=== PATIENT | female | born 1950 | race Caucasian/White ===

== ENCOUNTER 2016-10-14 12:01 | Emergency (ER) | payer MEDICARE ==
[~2016-10-14] VITALS: Ht 162.6 cm; Wt 90.7 kg
[~2016-10-14 12:01] MED LIST: ALBUTEROL-1 PUFF/14. IN; ALEVE220 MG PO; AMITRIPTYLINE100 MG PO; AMLO5TAB PO; COMBIVENT INH14.7 GM IN; COMBIVENT RESPI1 SPR IH; FLONASE 50 MCG16 GM; FUROSEMIDE 20MG20 MG PO; GABAPENTIN300 MG PO; HYDROCODONE-APA1 TA1 PO; INSULIN GL100 UNITS/ SC; JANUMET 1000 MG1 TAB PO; KAPIDEX60 MG PO; LEVAQUIN500 MG PO; LISINOPRIL/HYDR1 TAB PO; LOSARTAN POTASS25 MG PO; METFORMIN500 MG PO; MICARDIS HCT 251 TAB PO; NYSTATIN CREAM15 GM EX; OMNICEF 300 MG300 MG PO; PANTOPRAZOLE SO40 MG PO; PERSANTINE75 MG PO; PREDNISONE 20MG20 MG PO; PROAIR HFA0.09 MG/AC IH; Pentoxifylline400 MG PO; SIMVASTATIN40 MG PO; SYMBICORT1 AER IH; SYNTHROID0.088 MG PO; TEKTURNA150 MG PO; TESSALON PERLE100 M1 PO; ULTRAM50 MG PO; VENTOLIN H0.09 MG/AC IH; VITAMIN C500 M1 PO; VITAMIN D1000 IU PO; VYTORIN 10 MG-41 TAB PO; XANAX1 MG PO; ZITHROMAX Z PA250 MG PO; [UNRECOGNIZED DRUG - OTHER] PO
[2016-10-14 12:48] LABS: URINE BILIRUBIN - DIPSTICK NEGATIVE (NEG)
[2016-10-14 12:50] LABS: URINE BLOOD 1+ (NEG)
--- NOTE | 2016-10-14 12:59 | Urgent Treatment Center Report ---
History of Present Issue Date/Time Seen by Provider 10/14/16 1255 Visit Reason Pt arrived:Walked Presenting Problem:FREQ URINATION WITH BURNING X3 DAYS Location if Accident: Onset of symptoms date/time:10/11/1604/21/700 or onset unknown for: Have you (or family members/close friends) recently traveled outside the [place]? N If Yes, where/when: Have you had exposure to infectious disease within the past month? TB? Other? Specify: Source patient, RN notes reviewed, family Exam Limitations no limitations Comment Pt has had dysuria, frequency X 2-3 days. No fever. Has been fighting URI type symptoms for several months but has not been an antibiotics X 2-3 weeks. Has some nausea. Has a history of DM. ALLERGIES Coded Allergies: Sulfa (Sulfonamide Antibiotics) (Severe, S-DIFF. BREATHING, SWELLING 08/02/15) cephalexin (Severe, S-DIFF. BREATHING, SWELLING 08/02/15) acetaminophen (From PERCOCET) (Intermediate, I-RASH, HEADACHE 08/02/15) albuterol (Intermediate, I-RASH; HEADACHE 08/02/15) amoxicillin (From AUGMENTIN) (Intermediate, I-RASH, HEADACHE 08/02/15) atorvastatin (From LIPITOR) (Intermediate, I-ITCHING; HAIR FALLS OUT 08/02/15) clavulanic acid (From AUGMENTIN) (Intermediate, I-RASH, HEADACHE 08/02/15) codeine (From TYLENOL-CODEINE) (Intermediate, I-RASH, HEADACHE 08/02/15) hydrocodone (From LORTAB) (Intermediate, I-ITCHING (IN LARGE DOSES PER PT.) ) morphine (Intermediate, I-RASH, HEADACHE, ASTHMA ATTACKS 08/02/15) oxycodone (From PERCOCET) (Intermediate, I-RASH, HEADACHE 08/02/15) tramadol (Intermediate, I-RASH, HEADACHE 08/02/15) ipratropium (Mild, 02/18/16) levalbuterol (Mild, 02/18/16) Home Medications Active Scripts AMITRIPTYLINE HCL (Amitriptyline HCl) 50 MG PO QHS #30 TAB Prov: 03/08/15 Levofloxacin (Levaquin 500MG) 500 MG PO DAILY #10 TAB Prov: 02/20/16 ALBUTEROL-IPRATROPIUM (Combivent Inhaler) 1 PUFFS IN QIDP PRN SHORTNESS OF BREATH #1 INH Ref 3 Prov: 02/20/16 Prednisone (Prednisone 20MG) 20 MG PO BID #10 TAB Prov: 02/20/16 Reported Medications Gabapentin (Gabapentin 300MG) 300 MG PO TID PRN PAIN Furosemide (Furosemide) 20 MG PO DAILY Simvastatin (Simvastatin 40MG Tab) 40 MG PO QHS INSULIN GLARGINE (Lantus 3ML Solostar Pen) 60 UNITS SC QHS HYDROCODONE 5MG/APAP 325MG (Hydrocodon-Acetaminophen 5-325) 1 TAB PO TIDP PRN PAIN Ascorbic Acid (Vitamin C) 500 MG PO DAILY CHOLECALCIFEROL (VITAMIN D3) (Vitamin D3) 1,000 IUNITS PO DAILY Losartan Potassium (Losartan 25MG) 25 MG PO DAILY #30 TAB Levothyroxine Sodium (Synthroid 0.088MG) 88 MCG PO DAILY Alprazolam (Xanax) 1 MG PO TIDP Metformin HCL (Metformin) 500 MG PO BID Amlodipine Besylate (Amlodipine) 10 MG PO DAILY BUDESONIDE/FORMOTEROL FUMARATE (Symbicort 80-4.5 Mcg Inhaler) 2 PUFF IH BID History Medical History General CAD? No Angina: Yes [place]: No Hypertension? Yes Hyperlipidemia? Yes CHF? No DVT? No PE? No COPD? No Asthma? Yes Anemia? No GERD? No Gastric ulcers? No GI Bleed? No Hernia? Yes Thyroid Problems? Yes Hypothyroidism? Yes CVA? No Seizures? No Diabetes? Yes Insulin Dependent: Yes Insulin Pump: No Home FSBS? Yes Renal Insuffiency? No UTI? Yes Stones? No BPH? No GB Disease: Yes Nephritic Syndrome? No Asplenia? No Hepatitis? No Sickle Cell Disease? No Arthritis? No Migraines? Yes Cataracts? No Glaucoma? No MRSA? Yes HIV? No TB? No Anxiety? Yes Depression? Yes Cancer? No More? 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 Genitourinary dysuria, frequency, pain. denies: discharge. Physical Exam Vital Signs Vital Signs Date Time Temp Pulse Resp B/P Pulse O2 O2 Flow FiO2 Ox Delivery Rate 10/14 1240 97.8 91 20 152/78 94 10/14 1209 97.8 91 20 152/78 94 General Appearance normal appearance, WD/WN, no apparent distress Eye Exam - bilateral eye PERRL Ear, Nose, Throat normal pharynx Respiratory Status Yes: trachea midline, chest symmetrical. No: respiratory distress. Lung Sounds bilateral: normal breath sounds. Cardiovascular regular rate/rhythm, no murmur Gastrointestinal normal bowel sounds, soft Neurologic alert, oriented x 3 Medical Decision Making LABS/Meds/Orders Pt receiving controlled substance in ED? No Results/Orders Laboratory Tests 10/14/16 1242: Urine Color Pending, Urine Appearance CLEAR, Urine pH 6.0, Ur Specific [place] < 1.005 L, Urine Protein NEGATIVE, Urine Ketones NEGATIVE, Urine Blood 1+ H, Urine Nitrate NEGATIVE, Urine Bilirubin NEGATIVE, Urine Urobilinogen 0.2, Ur Leukocyte Esterase 3+ H, Urine Glucose NEGATIVE Orders Procedure Date/time Status CULTURE, URINE 10/14 1301 Active [facility] URINE DIPSTICK 10/14 1242 Active Departure Departure Disposition [place] Home or Self Care(routine) Clinical Impression Primary Impression: UTI (urinary tract infection) Qualifiers: Urinary tract infection type: acute cystitis Hematuria presence: with hematuria Qualified Code: N30.01 - Acute cystitis with hematuria Condition STABLE Referrals Armida Black APRN (Family): 3 Days-Call Office Patient Instructions DI for Urinary Tract Infection (UTI) Additional Instructions Urine culture results should be available in 48-72 hours for [place] to review Discharge Counseling Counseled pt/family regarding diagnosis, test results, medications/RX, follow up needs Prescriptions Current Visit Scripts NITROFURANTOIN MONOHYD/M-CRYST (Macrobid 100 MG Capsule) 100 MG PO BID #14 CAP at 1302
[2016-10-14] MEDS ORDERED: MACROBID100 M3 PO (13:01)
[2016-10-14 13:06] VITALS: BP 152/78
== END 2016-10-14 13:06 | disposition home or self-care (01) ==
LOC: ER 12:01 → UTC 12:18
PROVIDERS: Emergency Medicine
DX: N30.01 Acute cystitis with hematuria (principal); E11.9 Type 2 diabetes mellitus without complications; Z79.4 Long term (current) use of insulin; I10 Essential (primary) hypertension

== ENCOUNTER 2017-03-09 13:44 | Observation (INO) | payer MEDICARE ==
[~2017-03-09] VITALS: Ht 162.6 cm; Wt 88.6 kg
[~2017-03-09 13:44] MED LIST changes: +MACROBID100 M3 PO
[2017-03-09 13:47] VITALS: BP 144/67
[2017-03-09 14:04] LABS: LYMPH # 1.3 K/mm3 (0.7-4.5); LYMPH % 15.3 % (10-50.0)
[2017-03-09 14:05] LABS: HEMOGLOBIN 12.1 g/dL (12.2-16.2)
[2017-03-09 14:20] LABS: URINE BILIRUBIN - DIPSTICK NEGATIVE (NEG); URINE BLOOD 1+ (NEG)
--- NOTE | 2017-03-09 14:35 | Emergency Room Report ---
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 C/O FALLING MORE FREQUENTLY Onset of symptoms date/time:/ or onset unknown for:MEDICAL HX UNKNOWN Treatment Prior to Arrival: 20G IN THE LEFT AC AND LABS DRAWN. 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 N Clinical Suspician of Infection? N Mental Status: 1 - Regular (Normal Baseline) Sepsis Risk:Low Sepsis Risk Have you (or family members/close friends) recently traveled outside the [place]? N If Yes, where/when: Have you had exposure to infectious disease within the past month? N TB? Other? Specify: 66 years old white female fell at home after having an episode of diarrhea X 3 TIMES. She landed on her buttocks. She has chronic history of chronic obstructive pulmonary disease she is on home oxygen dependent. No excess sugars had no chest pain no vomiting. Recently diagnosed with a UTI and she's on antibiotic. Source patient, RN notes reviewed, family Exam Limitations no limitations ALLERGIES Coded Allergies: Sulfa (Sulfonamide Antibiotics) (Severe, S-DIFF. BREATHING, SWELLING 08/02/15) cephalexin (Severe, S-DIFF. BREATHING, SWELLING 08/02/15) acetaminophen (From PERCOCET) (Intermediate, I-RASH, HEADACHE 08/02/15) albuterol (Intermediate, I-RASH; HEADACHE 08/02/15) amoxicillin (From AUGMENTIN) (Intermediate, I-RASH, HEADACHE 08/02/15) atorvastatin (From LIPITOR) (Intermediate, I-ITCHING; HAIR FALLS OUT 08/02/15) clavulanic acid (From AUGMENTIN) (Intermediate, I-RASH, HEADACHE 08/02/15) codeine (From TYLENOL-CODEINE) (Intermediate, I-RASH, HEADACHE 08/02/15) hydrocodone (From LORTAB) (Intermediate, I-ITCHING (IN LARGE DOSES PER PT.) ) morphine (Intermediate, I-RASH, HEADACHE, ASTHMA ATTACKS 08/02/15) oxycodone (From PERCOCET) (Intermediate, I-RASH, HEADACHE 08/02/15) tramadol (Intermediate, I-RASH, HEADACHE 08/02/15) ipratropium (Mild, 02/18/16) levalbuterol (Mild, 02/18/16) Home Medications Active Scripts AMITRIPTYLINE HCL (Amitriptyline HCl) 50 MG PO QHS #30 TAB Prov: 03/08/15 Levofloxacin (Levaquin 500MG) 500 MG PO DAILY #10 TAB Prov: 02/20/16 ALBUTEROL-IPRATROPIUM (Combivent Inhaler) 1 PUFFS IN QIDP PRN SHORTNESS OF BREATH #1 INH Ref 3 Prov: 02/20/16 Prednisone (Prednisone 20MG) 20 MG PO BID #10 TAB Prov: 02/20/16 NITROFURANTOIN MONOHYD/M-CRYST (Macrobid 100 MG Capsule) 100 MG PO BID #14 CAP Prov: 10/14/16 Reported Medications Gabapentin (Gabapentin 300MG) 300 MG PO TID PRN PAIN Furosemide (Furosemide) 20 MG PO DAILY Simvastatin (Simvastatin 40MG Tab) 40 MG PO QHS INSULIN GLARGINE (Lantus 3ML Solostar Pen) 60 UNITS SC QHS HYDROCODONE 5MG/APAP 325MG (Hydrocodon-Acetaminophen 5-325) 1 TAB PO TIDP PRN PAIN Ascorbic Acid (Vitamin C) 500 MG PO DAILY CHOLECALCIFEROL (VITAMIN D3) (Vitamin D3) 1,000 IUNITS PO DAILY Losartan Potassium (Losartan 25MG) 25 MG PO DAILY #30 TAB Levothyroxine Sodium (Synthroid 0.088MG) 88 MCG PO DAILY Alprazolam (Xanax) 1 MG PO TIDP Metformin HCL (Metformin) 500 MG PO BID Amlodipine Besylate (Amlodipine) 10 MG PO DAILY BUDESONIDE/FORMOTEROL FUMARATE (Symbicort 80-4.5 Mcg Inhaler) 2 PUFF IH BID History Medical History General CAD? No Angina: Yes [place]: No Hypertension? Yes Hyperlipidemia? Yes CHF? No DVT? No PE? No COPD? No Asthma? Yes Anemia? No GERD? No Gastric ulcers? No GI Bleed? No Hernia? Yes Thyroid Problems? Yes Hypothyroidism? Yes CVA? No Seizures? No Diabetes? Yes Insulin Dependent: Yes Insulin Pump: No Home FSBS? Yes Renal Insuffiency? No End Stage Renal Disease? No UTI? Yes Stones? No BPH? No GB Disease: Yes Nephritic Syndrome? No Asplenia? No Hepatitis? No Sickle Cell Disease? No Arthritis? No Migraines? Yes Cataracts? No Glaucoma? No MRSA? Yes HIV? No TB? No Anxiety? Yes Depression? Yes Cancer? No More? No Immunization Hx DT/Tetanus > 10 Years Ago Flu 10/03/2013 Pneumonia Received In Past Surgical Hx Previous Surgery?Y Tubal Ligation HERNIA REPAIR REMOVED SWEAT GLANDS LT OVARY REMOVED Tonsils GALLBLADDER BLADDER TACK,COLON LIFT, KIDNEY ADHESIONS REMOVED THROAT NODULE REMOVED THROAT POLYP REMOVED X2 COLONOSCOPY ATTEMPTED HERNIA REPAIR 07/17-UNABLE TO LOCATE Family History Family Hx Diabetes Yes CAD Yes Hypertension Yes Hyperlipidemia Yes Cancer Yes TB No Social History Smoking Hx Smoker: Never Smoker Tobacco: No Packs/day N/A Alcohol Alcohol: No Review of Systems All Other Systems Reviewed and Negative Eyes no symptoms reported ENT no symptoms reported. Respiratory no symptoms reported Cardiovascular no symptoms reported Gastrointestinal no symptoms reported, see HPI, diarrhea Genitourinary no symptoms reported. Musculoskeletal see HPI, back pain Skin no symptoms reported Psychiatric/Neurological no symptoms reported Physical Exam Vital Signs Vital Signs Date Time Temp Pulse Resp B/P Pulse O2 O2 Flow FiO2 Ox Delivery Rate 03/09 1611 88 16 152/72 95 2 / 1525 87 18 140/68 97 2 08/ 1432 89 16 150/88 97 2 08/ 1347 98.2 92 16 144/67 95 2 - WBC >12,000 or <4,000 or 10% bands? 2 or more SIRS Criteria Met? B/P:150/88 MAP:92 Creatinine >2.0? UA output<0.5ml/kg/hr for 2 hrs? Platelet count >100,000? Lactate >2.0mmol/1? INR >1.2 or PTT > than 60 sec? Evidence of Organ Dysfunction? Provider documented clinical suspician of infection? N Sepsis Criteria Count: 1 Sepsis Risk: Low Sepsis Risk General Appearance normal appearance, WD/WN Eye Exam - bilateral eye normal exam, bilateral eye PERRL, bilateral eye EOMI Ear, Nose, Throat hearing grossly normal, normal ENT inspection Neck normal inspection, non-tender, supple, full range of motion Respiratory Status Yes: trachea midline, chest symmetrical, non tender chest. No: respiratory distress. Lung Sounds bilateral: normal breath sounds, lungs clear. 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 No Results/Orders Laboratory Tests 03/09/17 1415: Urine Color YELLOW, Urine Appearance SL CLOUDY, Urine pH 6.0, Ur Specific [place] <= 1.005, Urine Protein 1+ H, Urine Ketones NEGATIVE, Urine Blood 1+ H , Urine Nitrate NEGATIVE, Urine Bilirubin NEGATIVE, Urine Urobilinogen 0.2, Ur Leukocyte Esterase 2+ H, Urine RBC 3-5, Urine WBC 20-50, Ur Squamous Epith Cells OCC, Urine Bacteria 2+, Urine Glucose TRACE H 03/09/17 1350: Troponin I < 0.02, B-Natriuretic Peptide 188 H 03/09/17 1350: Sodium 132 L, Potassium 4.1, Chloride 94 L, Carbon Dioxide 31, BUN 27 H, Creatinine 1.5 H, Estimated Creat Clear 52, Estimated GFR (MDRD) 35 L, Glucose 217 H, Calcium 10.5 H, Total Bilirubin 0.3, AST 22, ALT 33, Alkaline Phosphatase 93, Total Protein 8.3 H, Albumin 2.6 L, Globulin 5.7 H, Albumin/ Globulin Ratio 0.5 L, WBC 8.6, RBC 3.99 L, Hgb 12.1 L, Hct 38.1, MCV 95.5, RDW 13.0, Plt Count 226, MPV 7.7, Gran % 76.6, Gran # 6.6, Lymphocytes % 15.3, Monocytes % 6.7, Eosinophils % 0.9, Basophils % 0.5, Lymphocytes # 1.3, Monocytes # 0.6, Eosinophils # 0.1, Basophils # 0.0, PUBS MCHC 31.8, MCH 30.4 Current Medication Orders Sig/Matilde Start time Last Medication Dose Route Stop Time Status Admin Sodium Chloride 10 ML PRN PRN 03/09 1400 AC IV 03/10 1354 Orders Procedure Date/time Status ELECTROCARDIOGRAM REQUEST 03/09 1436 Active TROPONIN I 03/09 1436 Complete DIARRHEA PANEL, PCR 03/09 1436 Active BRAIN NATRIURETIC PEPTIDE 03/09 1436 Complete 12 LEAD EKG-LEATHA (INITIAL) 03/09 1430 Active CULTURE, URINE 03/09 1415 Active IV SALINE LOCK 03/09 1354 Active URINALYSIS/COMPLETE 03/09 135 Complete CBC WITH AUTO DIFF 03/09 135 Complete CHEM 12 PROFILE 03/09 135 Complete Departure Departure Time of Disposition 1639 Disposition Still a Patient Clinical Impression Primary Impression: Weakness Secondary Impressions: Dehydration, Enteritis, Falls Condition STABLE Referrals Leiv Gutierrez MD (Family) Additional Instructions I DISCUSSED WITH DR SNOW WHO WILL ADMIT FOR IVF AND IV ABX. THE PATIENT AND THE FAMILY AGREES. Discharge Counseling Counseled pt/family regarding diagnosis, test results, medications/RX, home care ED Critical Care Critical Care No If Critical Care minutes are documented, the time involved in the performance of seperately reportable procedures was not counted toward critical care time documented. I directly delivered medical care to this critically ill and/or injured patient. Timely evaluation and treatment was necessary to address the significant organ system(s) dysfunction present in this patient. at 1641
[2017-03-09 14:37] LABS: URINE SQUAMOUS CELLS OCC #/hpf (0-5)
--- NOTE | 2017-03-09 16:15 | RADIOLOGY REPORT PS360 ---
ABD ACUTE(MUL VIEWS) HISTORY: DIARRHEA diarrhea. Abdominal pain Patient Age: 66 years: Female Ordering Physician: Mason Hinojosa MD TECHNIQUE: Flat and . Upright abdomen COMPARISON : CT abdomen pelvis from June 2013 utilized. FINDINGS . Moderate Solid stool is seen throughout the right colon . However there is mainly gas with minimal evident stool throughout the gaseous distended transverse colon. Minimal, less evident gas throughout the descending colon and rectum. There may be some small air-fluid levels at the transverse and left colon on the upright film which is likely reflect given history of diarrhea. Diarrhea There is mild to moderate gas at small bowel. No significant small bowel dilatation but we do see some scattered small air-fluid levels in the small bowel. The findings are compatible with enteritis. The stomach is not distended thus no evidence of obstruction at this level. Cholecystectomy clips right upper quadrant. Moderate size bladder. Uterus deviated to right on previous 2012 CT which account for appearance of fullness right pelvis IMPRESSION: 1.. No significant bowel dilatation or obstruction. No free air 2. Findings compatible with Enteritis: Moderate solid stool throughout right colon; with generous gas transverse colon. Scattered modest air-fluid levels throughout the transverse & left colon reflect diarrhea. Mild to moderate gas in nondilated small bowel. Scattered small air-fluid levels here Above findings would be compatible with enteritis Addendum. I would note the patient did have suprapubic fat-containing moderate-sized ventral hernia on that previous 2013 CT. But no associated findings in this region appreciated today on plain film
[2017-03-09 17:39] VITALS: BP 140/65
[2017-03-09 17:41] VITALS: BP 140/65
[2017-03-09 19:42] VITALS: BP 156/73
[2017-03-09 21:30] VITALS: BP 156/73
[2017-03-10 04:03] VITALS: BP 120/58
[2017-03-10 08:11] VITALS: BP 130/57
[2017-03-10 09:15] VITALS: BP 130/57
--- NOTE | 2017-03-10 09:19 | HISTORY AND PHYSICAL REPORT ---
Demographics: Admit date: 03/10/17 Chief complaint: Diarrhea PRIMARY DIAGNOSIS: ENTERITIS Allergies: Coded Allergies: Sulfa (Sulfonamide Antibiotics) (Severe, S-DIFF. BREATHING, SWELLING 08/02/15) cephalexin (Severe, S-DIFF. BREATHING, SWELLING 08/02/15) acetaminophen (From PERCOCET) (Intermediate, I-RASH, HEADACHE 08/02/15) albuterol (Intermediate, I-RASH; HEADACHE 08/02/15) amoxicillin (From AUGMENTIN) (Intermediate, I-RASH, HEADACHE 08/02/15) atorvastatin (From LIPITOR) (Intermediate, I-ITCHING; HAIR FALLS OUT 08/02/15) clavulanic acid (From AUGMENTIN) (Intermediate, I-RASH, HEADACHE 08/02/15) codeine (From TYLENOL-CODEINE) (Intermediate, I-RASH, HEADACHE 08/02/15) hydrocodone (From LORTAB) (Intermediate, I-ITCHING (IN LARGE DOSES PER PT.) ) morphine (Intermediate, I-RASH, HEADACHE, ASTHMA ATTACKS 08/02/15) oxycodone (From PERCOCET) (Intermediate, I-RASH, HEADACHE 08/02/15) tramadol (Intermediate, I-RASH, HEADACHE 08/02/15) ipratropium (Mild, 02/18/16) levalbuterol (Mild, 02/18/16) History of present illness: History of present illness: 66-year-old white female with multiple comorbidities, chronic cystitis/ recurrent urinary tract infections who recently was placed on levofloxacin for a cystitis. Her symptoms of urinary frequency and urgency and dysuria-which are rarely under control-have slightly improved with antibiotic therapy. However, she's now begun to suffer from severe diarrhea and presented to the emergency arm and she was found to have incontinence of stool, evidence of mild dehydration. Admitted to hospital. This morning she is slightly improved with no diarrhea since admission, but some abdominal tenderness and discomfort. She has not eaten any solid food yet this admission. Past medical history: Family HX Diabetes Yes CAD Yes Hypertension Yes Hyperlipidemia Yes Cancer Yes TB No Immunization HX DT/Tetanus > 10 Years Ago Flu 10/03/2013 Pneumonia Received In Past TB Test in last year No General CAD? No Angina: Yes [place]: No Hypertension? Yes Hyperlipidemia? Yes CHF? No DVT? No PE? No COPD? No Asthma? Yes Anemia? No GERD? No Gastric ulcers? No GI Bleed? No Hernia? Yes Thyroid Problems? Yes Hypothyroidism? Yes CVA? No Seizures? No Diabetes? Yes Insulin Dependent: Yes Insulin Pump: No Home FSBS? Yes Renal Insuffiency? No UTI? Yes Stones? No BPH? No GB Disease: Yes Nephritic Syndrome? No Asplenia? No Hepatitis? No Sickle Cell Disease? No Arthritis? No Migraines? Yes Cataracts? No Glaucoma? No MRSA? Yes HIV? No TB? No Anxiety? Yes Depression? Yes Cancer? No More? No Past Surgical HX Previous Surgery?Y Tubal Ligation HERNIA REPAIR REMOVED SWEAT GLANDS LT OVARY REMOVED Tonsils GALLBLADDER BLADDER TACK,COLON LIFT, KIDNEY ADHESIONS REMOVED THROAT NODULE REMOVED THROAT POLYP REMOVED X2 COLONOSCOPY ATTEMPTED HERNIA REPAIR 07/17-UNABLE TO LOCATE Current home meds: Active Scripts AMITRIPTYLINE HCL (Amitriptyline HCl) 50 MG PO QHS #30 TAB Prov: 03/08/15 Levofloxacin (Levaquin 500MG) 500 MG PO DAILY #10 TAB Prov: 02/20/16 ALBUTEROL-IPRATROPIUM (Combivent Inhaler) 1 PUFFS IN QIDP PRN SHORTNESS OF BREATH #1 INH Ref 3 Prov: 02/20/16 NITROFURANTOIN MONOHYD/M-CRYST (Macrobid 100 MG Capsule) 100 MG PO BID #14 CAP Prov: 10/14/16 Reported Medications Gabapentin (Gabapentin 300MG) 300 MG PO TID PRN PAIN Furosemide (Furosemide) 20 MG PO DAILY Simvastatin (Simvastatin 40MG Tab) 40 MG PO QHS INSULIN GLARGINE (Lantus 3ML Solostar Pen) 60 UNITS SC QHS HYDROCODONE 5MG/APAP 325MG (Hydrocodon-Acetaminophen 5-325) 1 TAB PO TIDP PRN PAIN Ascorbic Acid (Vitamin C) 500 MG PO DAILY CHOLECALCIFEROL (VITAMIN D3) (Vitamin D3) 1,000 IUNITS PO DAILY Losartan Potassium (Losartan 25MG) 25 MG PO DAILY #30 TAB Levothyroxine Sodium (Synthroid 0.088MG) 88 MCG PO DAILY Alprazolam (Xanax) 1 MG PO TIDP Metformin HCL (Metformin) 500 MG PO BID Amlodipine Besylate (Amlodipine) 10 MG PO DAILY Social Hx: Smoking HX Tobacco No Packs/day N/A Alcohol Alcohol: No Hx of Drug Use Drug Use? No Patien't marital status is Patient's support system is good Review of systems: Constitutional diaphoresis, malaise, weakness. Respiratory shortness of breath, SOB with excertion, SOB at rest, wheezing. Cardiovascular No chest pain, No edema, No palpitations, No syncope Gastrointestinal/Abdominal see HPI, abdomen distended, abdominal pain, No blood streaked bowels, diarrhea, No difficulty swallowing, nausea, poor appetite, poor fluid intake, No rectal bleeding, vomiting Genitourinary see HPI. Musculoskeletal back pain, joint pain, joint swelling, muscle pain, muscle stiffness, neck pain. Neurological Yes: weakness, parasthesia. Exam: Lab data for last 24 hours: Laboratory Tests 03/09/17 1415: Urine Color YELLOW, Urine Appearance SL CLOUDY, Urine pH 6.0, Ur Specific [place] <= 1.005, Urine Protein 1+ H, Urine Ketones NEGATIVE, Urine Blood 1+ H , Urine Nitrate NEGATIVE, Urine Bilirubin NEGATIVE, Urine Urobilinogen 0.2, Ur Leukocyte Esterase 2+ H, Urine RBC 3-5, Urine WBC 20-50, Ur Squamous Epith Cells OCC, Urine Bacteria 2+, Urine Glucose TRACE H 03/09/17 1350: Troponin I < 0.02, B-Natriuretic Peptide 188 H 03/09/17 1350: Sodium 132 L, Potassium 4.1, Chloride 94 L, Carbon Dioxide 31, BUN 27 H, Creatinine 1.5 H, Estimated Creat Clear 52, Estimated GFR (MDRD) 35 L, Glucose 217 H, Calcium 10.5 H, Total Bilirubin 0.3, AST 22, ALT 33, Alkaline Phosphatase 93, Total Protein 8.3 H, Albumin 2.6 L, Globulin 5.7 H, Albumin/ Globulin Ratio 0.5 L, WBC 8.6, RBC 3.99 L, Hgb 12.1 L, Hct 38.1, MCV 95.5, RDW 13.0, Plt Count 226, MPV 7.7, Gran % 76.6, Gran # 6.6, Lymphocytes % 15.3, Monocytes % 6.7, Eosinophils % 0.9, Basophils % 0.5, Lymphocytes # 1.3, Monocytes # 0.6, Eosinophils # 0.1, Basophils # 0.0, PUBS MCHC 31.8, MCH 30.4 Microbiology 03/09 1415 URINE CATH: Urine Culture - RES Admission vital signs: 1ST Vital Signs Result Date Time Pulse Ox 95 03/09 1347 B/P 144/67 03/09 1347 O2 Flow Rate 2 03/09 134 Temp 98.2 03/09 1347 Pulse 92 03/09 1347 Resp 16 03/09 1347 O2 Delivery ROOM AIR 03/09 1739 Additional information: patient is alert and oriented x3. She is responsive to commands and has no cranial nerve asymmetry or evidence of peripheral muscle weaknessor neuropathy. Lungs are clear, heart rate regular. Abdomen is soft but very slightly distended with some subjective tenderness but no masses are palpable. No CVA tenderness. Plan: Problem List 1. Dehydration 2. Enteritis Plan: X-rays consistent with enteritis. Labs consistent with normal dehydration. Plan will be to advance diet today. Continue IV fluids. Monitor oxygen status and plan for short stay admission. at 0919
--- NOTE | 2017-03-10 12:05 | PHARMACY CLINIC NOTE ---
Patient Demographics Patient Demographics Admission date: 03/09/17 Date: 03/10/17 Time: 1205 Allergies Coded Allergies: Sulfa (Sulfonamide Antibiotics) (Severe, S-DIFF. BREATHING, SWELLING 08/02/15) cephalexin (Severe, S-DIFF. BREATHING, SWELLING 08/02/15) acetaminophen (From PERCOCET) (Intermediate, I-RASH, HEADACHE 08/02/15) albuterol (Intermediate, I-RASH; HEADACHE 08/02/15) amoxicillin (From AUGMENTIN) (Intermediate, I-RASH, HEADACHE 08/02/15) atorvastatin (From LIPITOR) (Intermediate, I-ITCHING; HAIR FALLS OUT 08/02/15) clavulanic acid (From AUGMENTIN) (Intermediate, I-RASH, HEADACHE 08/02/15) codeine (From TYLENOL-CODEINE) (Intermediate, I-RASH, HEADACHE 08/02/15) hydrocodone (From LORTAB) (Intermediate, I-ITCHING (IN LARGE DOSES PER PT.) ) morphine (Intermediate, I-RASH, HEADACHE, ASTHMA ATTACKS 08/02/15) oxycodone (From PERCOCET) (Intermediate, I-RASH, HEADACHE 08/02/15) tramadol (Intermediate, I-RASH, HEADACHE 08/02/15) ipratropium (Mild, 02/18/16) levalbuterol (Mild, 02/18/16) HEIGHT- FT: 5 IN: 4.00 K.622 VTE General Information Labs: Laboratory Tests 03/09 1350 Hematology Hgb (12.2 - 16.2 g/dL) 12.1 L Hct (37.0 - 47.0 %) 38.1 Plt Count (142 - 424 K/mm3) 226 Disclaimer The following section includes nursing documentation that has been pulled in for pharmacy review. Patient's VTE score: 5 Patient's VTE Risk: LOW RISK Clinical trial participant? No VTE prophylaxis [id number] VTE prophylaxis ordered? Yes Type of prophylaxis/treatment: Lovenox at 1205
[2017-03-10] MEDS ORDERED: Ciprofloxacin250 MG PO (15:14)
[2017-03-10] MEDS ORDERED: METFORMIN HCL1000 MG PO (15:14)
[2017-03-10] MEDS ORDERED: BYSTOLIC10 MG PO (15:15)
[2017-03-10] MEDS ORDERED: LOSARTAN POTAS100 MG PO (15:15)
[2017-03-10] MEDS ORDERED: AMITRIPTYLINE100 M1 PO (15:18)
[2017-03-10 15:52] VITALS: BP 133/56
[2017-03-10 19:30] VITALS: BP 142/70
[2017-03-10 19:53] VITALS: BP 142/70
[2017-03-11 03:54] VITALS: BP 140/58
--- NOTE | 2017-03-11 07:12 | ACUTE CARE PROGRESS NOTE (QUA) ---
Progress Notes Subjective Date 03/11/17 Time 0711 Note Patient had a restless night and did not sleep well because of not receiving Elavil last night from her home medication supply. On the positive side she is alert. No problems with disorientation and her diarrhea has completely resolved. Lungs are clear, heart rate regular, abdomen is soft. Objective Findings Last VS-Temp:98.4 B/P:140/58 Pulse:83 Resp:20 SaO2:97 OXYGEN Last weight lbs:195 oz:6 K.622 Method:Bed Scales Assessment/Plan Problem List 1. Dehydration 2. Enteritis Patient condition Improving Plan: initiate discharge plan This inpt stay is expected to cross 2 MNs from start of care No at 0712
--- NOTE | 2017-03-11 07:16 | DISCHARGE SUMMARY STANDARD ---
Demographics Admit date: 03/10/17 Discharge date: 03/11/17 History of present illness History of present illness 66-year-old white female with multiple comorbidities, chronic cystitis/ recurrent urinary tract infections who recently was placed on levofloxacin for a cystitis. Her symptoms of urinary frequency and urgency and dysuria-which are rarely under control-have slightly improved with antibiotic therapy. However, she's now begun to suffer from severe diarrhea and presented to the emergency arm and she was found to have incontinence of stool, evidence of mild dehydration. Admitted to hospital. This morning she is slightly improved with no diarrhea since admission, but some abdominal tenderness and discomfort. She has not eaten any solid food yet this admission. Hospital Course Hospital Course: Patient was admitted, her diarrhea resolved on admission to the floor. She had no further stomach complaints or diarrhea. Was slightly weak. Diet was advanced, and she tolerated this well. She had some insomnia and chronic pain complaints which were ameliorated with her regular medication. This morning she has reached maximal medical improvement and has no problems with further diarrhea. She continues to struggle with her diffuse aches and pains and cystitis complaints and she will be discharged home to follow-up with these an outpatient. I've advised that she stop her ciprofloxacin because of diarrhea and resolution of treatment course for her outpatient cystitis. Discharge diagnoses Problem List 1. Dehydration 2. Enteritis Medications Medications: Discharge meds are as noted. Follow up Follow up in office in: 3 DAYS with: Levi Gutierrez MD at 0715
[2017-03-11 07:56] VITALS: BP 135/61
[2017-03-11 09:00] VITALS: BP 135/61
--- OUTSIDE RECORDS SUMMARY | 2017-03-11 12:47 | External Medical Summary Rpt ---
Author Author [employer] Organization [employer] Address Unknown Phone Unavailable Purpose Continuity of Care Document - through 2016
--- OUTSIDE RECORDS SUMMARY | 2017-03-11 12:47 | External Medical Summary Rpt ---
Demographics Preferred Language Portuguese Marital Status Unknown Church Affiliation Unknown Race Unknown Ethnic Group Unknown Author Author FRANCISCA Address Unknown Phone Immunization No patient found.
--- OUTSIDE RECORDS SUMMARY | 2017-03-11 12:47 | External Medical Summary Rpt ---
Demographics Preferred Language Upper Sorbian Marital Status Unknown Buddhist Affiliation Unknown Race Unknown Ethnic Group Unknown Author Author FRANCISCA Address Unknown Phone Immunization No patient found.
--- OUTSIDE RECORDS SUMMARY | 2017-03-11 12:47 | External Medical Summary Rpt ---
Author Author FRANCISCA Address Unknown Phone [email or web address] Purpose Continuity of Care Document - 03-09-2017 through 2016
--- OUTSIDE RECORDS SUMMARY | 2017-03-11 12:47 | External Medical Summary Rpt ---
Author Author FRANCISCA Address Unknown Phone [email or web address] Purpose Continuity of Care Document - 03-09-2017 through 2016
--- OUTSIDE RECORDS SUMMARY | 2017-03-11 12:48 | External Medical Summary Rpt ---
Author Author FRANCISCA Kenroy, [employer] Organization [employer] Address Unknown Phone Unavailable Results Comprehensive metabolic 2000 panel in Serum or Plasma Observa Value Referen Units Interpr Notes Date tion ce etation Range Albumin/G 1.1 - 1.8 No Low No Mar 09 lobulin informati informati 2017 1:50 [Mass on in on in PM ratio] in source source Serum or data data Plasma Albumin 3.4 - 5.0 gm/dL Low No Mar 09 [Mass/vol informati 2016 1:50 ume] in on in PM Serum or source Plasma data Alkaline 46 - 116 U/L Normal No Mar 09 phosphata informati 2016 1:50 se on in PM [Enzymati source c data activity/ volume] in Serum or Plasma Bilirubin 0.2 - 1.0 mg/dL Normal No Mar 09 .total informati 2016 1:50 [Mass/vol on in PM ume] in source Serum or data Plasma Urea 7 - 18 mg/dL High No Mar 09 nitrogen informati 2017 1:50 [Mass/vol on in PM ume] in source Serum or data Plasma Calcium 8.5 - mg/dL High No Mar 09 [Mass/vol 10.1 informati 2017 1:50 ume] in on in PM Serum or source Plasma data Chloride 98 - 107 mmoL/L Low No Mar 09 [Moles/vo informati 2017 1:50 lume] in on in PM Serum or source Plasma data Carbon 21.0 - mmoL/L Normal No Mar 09 dioxide, 32.0 informati 2017 1:50 total on in PM [Moles/vo source lume] in data Serum or Plasma Creatinin 0.55 - mg/dL High No Mar 09 e 1.02 informati 2017 1:50 [Mass/vol on in PM ume] in source Serum or data Plasma Creatinin 50 - 200 ML/MIN Normal No Mar 09 e renal informati 2016 1:50 clearance on in PM source predicted data by Cockcroft -Gault formula Estimated 59- ML/MIN Low REFERENCE Mar 09 RANGE: 2017 1:50 glomerula >60 PM r ML/MIN/1. filtratio 73 SQUARE n rate METERSIf (GF this patient is -A merican, then multiply theresult by 1.210. Globulin 1.3 - 3.2 gm/dL High No Mar 09 [Mass/vol inform2016 1:50 ume] in on in PM Serum source data Glucose 74 - 106 mg/dL High No Mar 09 [Mass/vol informati 2016 1:50 ume] in on in PM Serum or source Plasma data Potassium 3.5 - 5.1 mmoL/L Normal No Mar 092016 1:50 [Moles/vo on in PM lume] in source Serum or data Plasma Sodium 136 - 145 mmoL/L Low No Mar 09 [Moles/vo 2016 1:50 lume] in on in PM Serum or source Plasma data Aspartate 15 - 37 U/L Normal No Mar 092016 1:50 aminotran on in PM sferase source [Enzymati data c activity/ volume] in Serum or Plasma Alanine 12 - 78 U/L Normal No Mar 09 aminotran 2016 1:50 sferase on in PM [Enzymati source c data activity/ volume] in Serum or Plasma Protein 6.4 - 8.2 gm/dL High No Mar 09 [Mass/vol informati 2016 1:50 ume] in on in PM Serum or source Plasma data CBC W Auto Differential panel in Blood Observa Value Referen Units Interpr Notes Date tion ce etation Range Basophils 0 - 0.2 K/MM3 Normal No Mar 092016 1:50 [#/volume on in PM ] in source Blood by data Automated count Basophils 0.1 - 2.0 % Normal No Mar 092016 1:50 leukocyte on in PM s in source Blood by data Automated count Eosinophi 0.0 - 0.4 K/mm3 Normal No Mar 09 ls 2016 1:50 [#/volume on in PM ] in source Blood by data Automated count Eosinophi 0.1 - % Normal No Mar 09 ls/100 12.0 2016 1:50 leukocyte on in PM s in source Blood by data Automated count Granulocy 1.8 - 7.8 K/mm3 Normal No Mar 09 nadine 2016 1:50 [#/volume on in PM ] in source Blood by data Automated count Granulocy 37.0 - % Normal No Mar 09 nadine/100 80.0 informati 2016 1:50 leukocyte on in PM s in source Blood by data Automated count Hematocri 37.0 - % Normal No Mar 09 t [Volume 47.0 2016 1:50 on in PM Fraction] source of Blood data Hemoglobi 12.2 - g/dL Low No Mar 09 n 16.2 inform2016 1:50 [Mass/vol on in PM ume] in source Blood data Lymphocyt 0.7 - 4.5 K/mm3 Normal No Mar 09 es inform2016 1:50 [#/volume on in PM ] in source Unspecifi data ed specimen by Automated count Lymphocyt 10 - 50.0 % Normal No Mar 09 es 2016 1:50 [#/volume on in PM ] in source Unspecifi data ed specimen by Automated count Erythrocy 27 - 31.2 pg Normal Mar 09 te mean 2016 1:50 corpuscul on in PM ar source hemoglobi data n [Entitic mass] Erythrocy 31.8 - g/dl Normal No Mar 09 te mean 35.4 inform2016 1:50 corpuscul on in PM ar source hemoglobi data n concentra tion [Mass/vol ume] by Automated count Erythrocy 82.2 - fl Normal No Mar 09 te mean 97.8 2016 1:50 corpuscul on in PM ar volume source [Entitic data volume] by Automated count Monocytes 0.1 - 1.0 K/mm3 Normal No Mar 092016 1:50 [#/volume on in PM ] in source Blood by data Automated count Monocytes 1.7 - 9.3 % Normal No Mar 09 /100 informati 2016 1:50 leukocyte on in PM s in source Blood by data Automated count Platelet 7.4 - fl Normal No Mar 09 mean 10.4 informati 2016 1:50 volume on in PM [Entitic source volume] data in Blood by Automated count Platelets 142 - 424 K/mm3 Normal No Mar 092016 1:50 [#/volume on in PM ] in source Blood data Erythrocy 4.2 - 5.4 M/mm3 Low No Mar 09 nadine ati 2016 1:50 [#/volume on in PM ] in source Amniotic data fluid Erythrocy 11.5 - % Normal No Mar 09 te 17.5 informati 2017 1:50 distribut on in PM ion width source [Entitic data volume] by Automated count Leukocyte 4.8 - K/MM3 Normal No Mar 09 s 10.8 informati 2017 1:50 [#/volume on in PM ] in source Blood data
--- OUTSIDE RECORDS SUMMARY | 2017-03-11 13:20 | External Medical Summary Rpt ---
Author Author FRANCISCA Address Unknown Phone [email or web address] Purpose Continuity of Care Document - through 2016 Problems Code Diagnosis DOS Provider Status E86.0 DEHYDRATION K52.9 NONINFECTIV E GASTROENTER ITIS AND COLITIS, UNSPECIFIED R53.1 WEAKNESS W19.XXXA UNSPECIFIED FALL, INITIAL ENCOUNTER
--- OUTSIDE RECORDS SUMMARY | 2017-03-11 13:20 | External Medical Summary Rpt ---
Demographics Preferred Language Romanian Marital Status Unknown Episcopalian Affiliation Unknown Race Unknown Ethnic Group Unknown Author Author FRANCISCA Address Unknown Phone Immunization No patient found.
--- OUTSIDE RECORDS SUMMARY | 2017-03-11 13:20 | External Medical Summary Rpt ---
Demographics Preferred Language Romansh Marital Status Unknown Roman Catholic Affiliation Unknown Race Unknown Ethnic Group Unknown Author Author FRANCISCA Address Unknown Phone Immunization No patient found.
--- OUTSIDE RECORDS SUMMARY | 2017-03-11 13:20 | External Medical Summary Rpt ---
Author Author FRANCISCA Address Unknown Phone [email or web address] Purpose Continuity of Care Document - through 2016 Problems Code Diagnosis DOS Provider Status E86.0 DEHYDRATION K52.9 NONINFECTIV E GASTROENTER ITIS AND COLITIS, UNSPECIFIED R53.1 WEAKNESS W19.XXXA UNSPECIFIED FALL, INITIAL ENCOUNTER
== END 2017-03-11 09:00 | disposition home or self-care (01) ==
LOC: ER 13:44 → 2ND 16:49
PROVIDERS: Emergency Medicine
DX: K52.9 Noninfective gastroenteritis and colitis, unspecified (principal); E86.0 Dehydration; R06.00 Dyspnea, unspecified; I10 Essential (primary) hypertension; E11.9 Type 2 diabetes mellitus without complications
CPT/HCPCS: G0378

== ENCOUNTER → 2017-05-13 | Outpatient (CLI) | payer MEDICARE ==
[~2017-05-13] MED LIST changes: +AMITRIPTYLINE100 M1 PO; +BYSTOLIC10 MG PO; +Ciprofloxacin250 MG PO; +LOSARTAN POTAS100 MG PO; +METFORMIN HCL1000 MG PO
--- NOTE | 2017-05-13 09:54 | CARDIOVASCULAR REPORT ---
"Cerebrovascular Exam Indications: 780.2 Syncope and collapse. IMPRESSIONS 1. The bilateral vertebral arteries are patent with normal antegrade flow. 2. Study suggests less than 20% stenosis involving the right internal carotid artery. 3. Study suggests 20-49% stenosis involving the left internal carotid artery. No change from the study of 12-Mar-2015. History: Risk factors: Hypertension. Diabetes mellitus. Carotid duplex study. Complete study and Doppler flow study including spectral analysis, color and jon scale imaging. Height: Height: 162.6cm. Height: 64in. Weight: Weight: 89.8kg. Weight: 197.6lb. Body mass index: BMI: 34kg/m^2. Body surface area: BSA: 2.05m^2. Location: Vascular laboratory. Patient status: Outpatient. Tables: Arterial flow: + +--------+--------+ |Location |V sys |V ed | + +--------+--------+ |Right CCA - proximal|53.4cm/s|14.9cm/s| + +--------+--------+ |Right CCA - distal |43.2cm/s|11cm/s | + +--------+--------+ |Right ECA |66.8cm/s|--------| + +--------+--------+ |Right ICA - proximal|45.6cm/s|11.8cm/s| + +--------+--------+ |Right ICA - mid |62.9cm/s|21.2cm/s| + +--------+--------+ |Right ICA - distal |80.8cm/s|33.7cm/s| + +--------+--------+ |Right vertebral |42.4cm/s|--------| + +--------+--------+ |Left CCA - proximal |60.5cm/s|11cm/s | + +--------+--------+ |Left CCA - distal |58.9cm/s|10.2cm/s| + +--------+--------+ |Left ECA |69.9cm/s|--------| + +--------+--------+ |Left ICA - proximal |68.4cm/s|19.6cm/s| + +--------+--------+ |Left ICA - mid |95.9cm/s|26.7cm/s| + +--------+--------+ |Left ICA - distal |80.9cm/s|27.5cm/s| + +--------+--------+ |Left vertebral |44cm/s |--------| + +--------+--------+ Velocity ratios: + + + + + + | |Right, V sys|Right, V ed|Left, V sys|Left, V ed| + + + + + + |Max ICA/dist CCA|1.87 |3.06 |1.63 |2.7 | + + + + + + (Report amended ) Electronically signed by: Singh Bowden [id number]"
--- NOTE | 2017-05-15 08:24 | RADIOLOGY REPORT PS360 ---
DIG MAMM-SCREEN MAGDALENO W/CAD CAD Screening COMPARISON: Digital mammograms 08/04/2015 and 08/02/2014 INDICATION: There is a history of breast cancer in patient's mother diagnosed after menopause. TECHNIQUE: Standard CC and MLO images were obtained. R2 CAD reviewed. FINDINGS: The breasts are closed primarily of fat with fibroglandular densities in the upper outer quadrants bilaterally as noted previously. There are few benign-appearing microcalcifications in each breast. There is no new or suspicious lesion in either breast and no suspicious microcalcifications. IMPRESSION: Stable exam with no suspicious lesion seen recommend yearly follow-up BI-RADS CATEGORY: 2_Benign RECOMMENDED FOLLOWUP: 12M 12 MONTH FOLLOW-UP (A letter has been sent to the patient regarding results of the study.)
== END ==
LOC: RAD 09:00
DX: Z12.31 Encounter for screening mammogram for malignant neoplasm of breast (principal); R55 Syncope and collapse
CPT/HCPCS: G0202